=== PATIENT | female | born 1950 | race Caucasian/White ===

== ENCOUNTER 2018-12-20 10:55 | Emergency (ER) | payer OTHER ==
[~2018-12-20] VITALS: Ht 162.6 cm; Wt 62.1 kg
[~2018-12-20 10:55] MED LIST: OSTEOBIOFLEX; TUMS; [UNRECOGNIZED DRUG - OTHER] PO
[2018-12-20 12:24] LABS: BASOPHIL % 1.4 % (0-2); PLATELET COUNT 325 x10^3mcL (130-400)
[2018-12-20 12:25] LABS: RED CELL DISTRIBUTION WIDTH 17.1 % (11.5-14.5)
[2018-12-20 12:37] LABS: CALCIUM 9.3 mg/dL (8.5-10.1); CARBON DIOXIDE 19.2 mmol/L (21-32); CHLORIDE SERUM 97 mmol/L (98-107); CREATININE SERUM 2.9 mg/dL (0.6-1.0); GFR1 17 mL/min; GLUCOSE SERUM 108 mg/dL (74-106); POTASSIUM SERUM 3.7 mmol/L (3.5-5.1); SODIUM SERUM 132 mmol/L (136-145)
[2018-12-20 12:42] LABS: ALBUMIN 2.9 g/dL (3.4-5.0); ALKALINE PHOSPHATASE 131 U/L (46-116); ALT/SGPT 10 U/L (14-59); AST/SGOT 28 U/L (15-37); BILIRUBIN TOTAL 0.5 mg/dL (0.20-1.00); C REACTIVE PROTEIN 3.8 mg/dL (<=0.9); TOTAL PROTEIN, SERUM 8.3 g/dL (6.4-8.2)
[2018-12-20 12:58] LABS: microscopic required? YES; urine erythrocyte 1+ (NEGATIVE)
[2018-12-20 13:36] LABS: ERYTHROCYTE SED RATE 96 mm/hr (0-30)
[2018-12-20 14:58] VITALS: BP 120/82
== END 2018-12-20 14:58 | disposition home or self-care (01) ==
LOC: ED 10:55
PROVIDERS: Specialist
DX: Z46.6 Encounter for fitting and adjustment of urinary device (principal); N39.0 Urinary tract infection, site not specified; Z85.51 Personal history of malignant neoplasm of bladder
CPT/HCPCS: J0696; J7030